=== PATIENT | female | born 1960 | race Caucasian/White ===

== ENCOUNTER 2016-09-30 05:47 | Emergency (ER) | payer OTHER ==
[~2016-09-30] VITALS: Ht 160 cm; Wt 53.5 kg
[~2016-09-30 05:47] MED LIST: NYSTATIN500000 UNI PO; PROBIOTIC1 EACH PO; TETRACYCLINE H500 M2 PO
[2016-09-30 07:49] VITALS: BP 108/71
[2016-09-30 08:23] LABS: ABSOLUTE BASOPHIL COUNT 0 /CUMM (0.0-0.2); ABSOLUTE EOSINOPHIL COUNT 0.1 /CUMM (0.0-0.7); ABSOLUTE GRANULOCYTE CT 2.1 /CUMM (1.4-6.5); ABSOLUTE LYMPH COUNT 1.3 /CUMM (1.2-3.4); ABSOLUTE MONOCYTE COUNT 0.3 /CUMM (0.10-0.60); BASOPHIL % 0.4 % (0.0-2.0); EOSINOPHIL % 2.4 % (0-5); GRANULOCYTE % 55.4 % (42.2-75.2); HEMATOCRIT 42.5 % (37-47); MEAN CORPUSCULAR HGB 29.4 PG (27.0-31.0); MEAN CORPUSCULAR HGB CONC 34.2 G/DL (33.0-37.0); MEAN PLATELET VOLUME 7.6 FL (7.4-10.4); PLATELET COUNT 241 /CUMM (130-400); RBC DISTRIBUTION WIDTH 13.5 % (11.5-14.5); RED BLOOD CELL CT 4.94 /CUMM (4.20-5.40); WHITE BLOOD CELL COUNT 3.9 /CUMM (4.8-10.8)
--- NOTE | 2016-09-30 08:24 | ED GI/GU/ABDOMINAL COMPLAINT ---
History of Present Illness General Chief Complaint: Abdominal Pain/Flank Pain Stated Complaint: "LOWER RIGHT ADBOMINAL PAIN" Source: patient Exam Limitations: no limitations Vital Signs & Intake/Output Vital Signs & Intake/Output Vital Signs Date Time Temp Pulse Resp B/P Pulse O2 O2 Flow FiO2 Ox Delivery Rate 09/30 0749 97.2 69 18 108/71 98 09/30 0614 98.0 75 17 114/77 98 Room Air Allergies Coded Allergies: No Known Allergies (02/17/16) Reconcile Medications Lactobacillus Acidophilus (Probiotic) 1 EACH CAPSULE 1 TAB PO DAILY SUPPLEMENT (Reported) Nystatin 500,000 UNIT TABLET 1 TAB PO BID FUNGAL INF (Reported) Tetracycline HCl 500 MG CAPSULE 1 TAB PO TID LYME (Reported) Triage Note: RLQ ABD PAIN STARTED 1 WEEK AGO, NOW IT IS DIFFUSE ABD PAIN,NO VOMITING OF DIARRHEA,HAS BEEN ON ANTIBIOTICS FOR 6 YRS ON AND OFF FOR LYME DISEASE FEELS BLOATED Triage Nurses Notes Reviewed? yes ? N Is pt currently ? No HPI: 56-year-old female that complains of intermittent diffuse abdominal pain that started about 9 days ago in the right lower quadrant and has traveled to the rest of the abdomen. Currently mild, maximum pain is moderate. She has no nausea no vomiting no fever no chills no change in appetite no weight loss. She is postmenopausal 8 years, no vaginal discharge or abnormal bleeding. Pain is aching and sharp. She has no modifying factors. She is on chronic antibiotics for the last 6 years for Lyme disease, currently on tetracycline. She is concerned about her liver she had an abnormal liver test that was shot by her doctor a few weeks ago. She states that her follow-up testing for her liver was normal but she wants to be evaluated "just to make sure". Past History Travel History Traveled to [place] past 21 day No Medical History Any Pertinent Medical History? 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 No Review of Systems Review of Systems Constitutional: Reports: see HPI. EENTM: Reports: no symptoms. Respiratory: Reports: no symptoms. Cardiovascular: Reports: no symptoms. GI: Reports: see HPI. Genitourinary: Reports: no symptoms. Musculoskeletal: Reports: no symptoms. Skin: Reports: no symptoms. Neurological/Psychological: Reports: no symptoms. Hematologic/Endocrine: Reports: no symptoms. Immunologic/Allergic: Reports: no symptoms. All Other Systems: Reviewed and Negative Physical Exam Physical Exam General Appearance: well developed/nourished Gastrointestinal: normal bowel sounds, soft, non-tender, no organomegaly Comments: Well-developed well-nourished no apparent distress. HEENT: Atraumatic, extraocular motion intact Neck: Supple, no lymphadenopathy Back: Nontender Respiratory: No respiratory distress clear to auscultation bilateral. Heart: Regular rate and rhythm no murmur Abdomen: Soft nontender nondistended Extremities: No edema, full range of motion Neuro: Alert and oriented x3 Psych: Mood affect normal, normal memory normal judgment. Skin: Warm and dry, no rash on exposed skin Core Measures ACS in differential dx? No Severe Sepsis Present: No Septic Shock Present: No Progress Differential Diagnosis: AAA, AMI, appendicitis, biliary colic, bowel obstruction , colon cancer, cholecystitis, diverticulitis, ectopic , endometritis, esophageal varices, gastritis, hepatitis, hernia, hemorrhoids, ischemic bowel, inflamm bowel dis, intrauterine , kidney stone, Kayli-Tyson tear, ovarian cyst, ovarian torsion, pancreatitis, PID/cervicitis, peptic ulcer, PUD/ GERD, perforated viscous, SBO, threatened AB, UTI/pyelo Plan of Care: Orders Procedure Date/time Status Add-on Test (ER Only) 09/30 0819 Active PARTIAL THROMBOPLASTIN TIME 09/30 0810 Complete PROTHROMBIN TIME 09/30 0810 Complete LIPASE 09/30 0810 Complete AMYLASE 09/30 0810 Complete COMPREHENSIVE METABOLIC PANEL 09/30 0804 Complete CBC WITHOUT DIFFERENTIAL 09/30 0804 Complete Laboratory Tests 09/30/16 0810: Anion Gap 12, Estimated GFR > 60, BUN/Creatinine Ratio 28.3 H, Glucose 92, Calcium 9.6, Total Bilirubin 0.8, AST 29, ALT 37, Alkaline Phosphatase 71, Total Protein 7.5, Albumin 4.6, Globulin 2.9, Albumin/Globulin Ratio 1.6, Amylase 71, Lipase 199, PT 11.1, INR 1.06, APTT 31, CBC w Diff NO MAN DIFF REQ, RBC 4.94, MCV 86.0, MCH 29.4, RDW 13.5, MPV 7.6, Gran % 55.4, Lymphocytes % 33.7, Monocytes % 8.1, Eosinophils % 2.4, Basophils % 0.4, Absolute Granulocytes 2.1, Absolute Lymphocytes 1.3, Absolute Monocytes 0.3, Absolute Eosinophils 0.1, Absolute Basophils 0, PUBS MCHC 34.2 Initial ED EKG: none Comments: Labs are unremarkable, coag studies negative. She has a nontender abdomen. He does not feel so she requires any further imaging study her workup an emergent basis at this time. Patient to follow-up with her primary care doctor or GI Departure Departure Disposition: HOME OR SELF CARE Condition: Stable Clinical Impression Primary Impression: Abdominal pain Qualifiers: Abdominal location: generalized Qualified Code: R10.84 - Generalized abdominal pain Referrals: SCOOTER BYRNES,CAITLIN Ross Additional Instructions: [place] diet, follow-up with your doctor or beauty operator if abdominal pain continues. Return with worsening abdominal pain, fever, vomiting or flulike illness. Departure Forms: Customer Survey General Discharge Information
[2016-09-30 08:33] LABS: PT 11.1 SEC (9.4-12.5); PTT 31 SEC (25-37)
== END 2016-09-30 09:08 ==
LOC: ERH 05:47
PROVIDERS: Emergency Medicine; Physician Assistant Surgical
DX: R10.9 Unspecified abdominal pain (principal)

== ENCOUNTER 2016-11-24 06:07 | Emergency (ER) | payer OTHER ==
[~2016-11-24] VITALS: Ht 160 cm; Wt 53.5 kg
--- NOTE | 2016-11-24 06:28 | ED DYSPNEA/ASTHMA COMPLAINT ---
History of Present Illness General Chief Complaint: General Adult Stated Complaint: PER PT + FLU NOW THINKS MAYBE PNEUMONIA Source: patient Exam Limitations: no limitations Vital Signs & Intake/Output Vital Signs & Intake/Output Vital Signs Date Time Temp Pulse Resp B/P Pulse O2 O2 Flow FiO2 Ox Delivery Rate 11/24 0645 99.4 11/24 0741 99.4 98 20 110/60 11/24 0701 99.9 11/24 0628 99.9 11/24 0628 Room Air 11/24 616 97.7 94 18 112/55 95 Room Air Allergies Coded Allergies: No Known Allergies (11/24/16) Reconcile Medications Lactobacillus Acidophilus (Probiotic) 1 EACH CAPSULE 1 TAB PO DAILY SUPPLEMENT (Reported) Tetracycline HCl 500 MG CAPSULE 1 TAB PO TID LYME (Reported) Triage Note: TRIAGE: PATIENT TO ER DX W/ FLU TYPE A BY CLINIC YESTERDAY AND GIVEN RX FOR TAMIFLU. SX BEGAN APPROX 3-4 DAYS AGO W/ +COUGH AND SNEEZING FITS PER PATIENT. PATIENT REPORTS HASN'T TAKEN TAMIFLU YET D/T NONE AT PHARMACY. PATIENT REQUESTING TO R/O PNA D/T CONTINUED SX AND COUGH FROM CLEAR TO NOW YELLOW. HX LYME DISEASE. PAIN TO CENTER OW CHEST W/ COUGHING. MD ACEVEDO AT BEDSIDE FOR EVAL. Triage Nurses Notes Reviewed? yes HPI: Patient has had shaking chills, nonproductive cough, fevers and myalgias for the past 4 days. Patient went to walk in center yesterday and her rapid flu came back positive for flu A. Patient was prescribed Tamiflu however the patient did not fill it since her symptoms have been going on for 3 days by that point. Yesterday evening the cough became productive with first clear sputum that then changed to thick yellow-green sputum. Patient is now also having a sharp stabbing epigastric pain whenever she coughs. There is no pain when she is not coughing. The pain is 10 out of 10 when she does cough. There is no radiation of the pain. Patient is very nervous because she states that she has a weakened immune system secondary to her chronic Lyme disease and she has been on multiple different antibiotics over the years so knows that she probably has very resistant bacteria. (CURTIS BYRNES,BRADFORD Lee) Past History Travel History Traveled to [place] past 21 day No Medical History Any Pertinent Medical History? 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 No (BRADFORD ACEVEDO MD) Review of Systems Review of Systems Constitutional: Reports: see HPI, chills, fever. EENTM: Reports: no symptoms. Respiratory: Reports: see HPI, cough, sputum production. Cardiovascular: Reports: see HPI, chest pain. GI: Reports: no symptoms. Genitourinary: Reports: no symptoms. Musculoskeletal: Reports: see HPI, muscle pain. Skin: Reports: no symptoms. Neurological/Psychological: Reports: no symptoms. Hematologic/Endocrine: Reports: no symptoms. Immunologic/Allergic: Reports: no symptoms. All Other Systems: Reviewed and Negative (CURTIS BYRNES,BRADFORD Lee) Physical Exam Physical Exam General Appearance: well developed/nourished, alert, awake, anxious, mild distress Head: atraumatic, normal appearance Eyes: Bilateral: PERRL, EOMI. Ears, Nose, Throat: normal pharynx, normal ENT inspection, hearing grossly normal Neck: normal inspection, supple, full range of motion, lymphadenopathy (R), lymphadenopathy (L) Respiratory: normal breath sounds, chest non-tender, no respiratory distress, lungs clear Cardiovascular: regular rate/rhythm, normal peripheral pulses Gastrointestinal: normal bowel sounds, soft, non-tender, no organomegaly Extremities: normal inspection, normal capillary refill, normal range of motion, no edema Neurologic/Psych: no motor/sensory deficits, awake, alert, oriented x 3, normal gait, normal mood/affect Skin: intact, normal color, warm/dry Lymphatic: adenopathy Core Measures ACS in differential dx? No Severe Sepsis Present: No Septic Shock Present: No (CURTIS BYRNES,BRADFORD Lee) Progress Differential Diagnosis: bronchitis, pneumonia, pneumothorax, rib fracture, INFLUENZA Plan of Care: tamiflu, nsaid, antitussiveInitial ED EKG: none Hand-Off Endorsed To: CORNELIO CHAMORRO MD Endorsed Time: 0700 Pending: Xray (BRADFORD ACEVEDO MD) Plan of Care: tamiflu, nsaid, antitussive Diagnostic Imaging: Viewed by Me: Radiology Read. Discussed w/RAD: Radiology Read. CXR Impression: no acute abnormality, no infiltrates, normal size heart, normal mediastinum (CORNELIO CHAMORRO MD) Departure Departure Condition: Stable Clinical Impression Primary Impression: Influenza A Referrals: ROSI CARABALLO MD (PCP/Family) Departure Forms: Customer Survey General Discharge Information (BRADFORD ACEVEDO MD) Departure Time of Disposition: 747 Disposition: HOME OR SELF CARE Prescriptions: Current Visit Scripts Oseltamivir Phosphate (Tamiflu) 1 CAP PO BID #10 CAP Benzonatate (Tessalon Perle) 1 CAP PO TID PRN cough #21 CAP (CORNELIO CHAMORRO MD) Critical Care Note Critical Care Note Critical Care Time: non-applicable (CURTIS BYRNES,BRADFORD Lee)
--- NOTE | 2016-11-24 07:19 | RADIOLOGY REPORT ---
EXAMINATION: XR CHEST CLINICAL INFORMATION: Pneumonia COMPARISON: Chest x-ray dated 06/01/2016 TECHNIQUE: 2 views of the chest were obtained. FINDINGS: Cardiomediastinal silhouette is within normal limits. Lungs are clear. Bony thorax is intact. IMPRESSION: No acute pulmonary disease.
[2016-11-24 07:41] VITALS: BP 110/60
[2016-11-24] MEDS ORDERED: TAMIFLU75 M1 PO (07:49)
[2016-11-24] MEDS ORDERED: TESSALON PERLE100 M1 PO (07:49)
== END 2016-11-24 08:00 ==
LOC: ERH 06:07
DX: J10.1 Influenza due to other identified influenza virus with other respiratory manifestations (principal)